=== PATIENT | male | born 2000 | race Caucasian/White ===

== ENCOUNTER 2018-09-22 21:46 | Emergency (ER) | payer OTHER ==
[2018-09-22 22:49] VITALS: BP 110/71
[2018-09-23] MEDS ORDERED: NORMAL SALINE 1000 ML 1,000 ML IV ONE (00:02)
--- NOTE | 2018-09-23 00:04 | ER Document Report ---
ED General - General Chief Complaint: Cough Stated Complaint: COUGH,DIFFICULTY BREATHING Time Seen by Provider: 09/22/18 23:57 Notes: Patient is a 18-year-old male that comes to the emergency department for chief complaint of cough. He states he has been sick for 2 weeks, he has been coughing the whole time, he has had some intermittent congestion, he has had some chills. He states prior to arrival he was coughing so hard he felt like he could not breathe. He has coughed up greenish sputum. 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 He has not been employed recently. He is vaccinated. He denies any diagnosed medical problems, smoking, asthma, or daily medications. TRAVEL OUTSIDE OF THE [place] IN LAST 30 DAYS: No - Related Data Allergies/Adverse Reactions: No Known Allergies Allergy (Unverified 09/22/18 23:45) Past Medical History - General Information source: Patient - Social History Smoking Status: Never Smoker Frequency of alcohol use: None Drug Abuse: None Lives with: Spouse/Significant other Family History: Reviewed & Not Pertinent Patient has suicidal ideation: No Patient has homicidal ideation: No - Medical History Medical History: Negative Renal/ Medical History: Denies: Hx Peritoneal Dialysis Surgical Hx: Negative - Immunizations Immunizations up to date: Yes Hx Diphtheria, Pertussis, Tetanus Vaccination: Yes Review of Systems - Review of Systems Constitutional: See HPI EENT: See HPI Cardiovascular: No symptoms reported Respiratory: See HPI Gastrointestinal: No symptoms reported Genitourinary: No symptoms reported Male Genitourinary: No symptoms reported Musculoskeletal: No symptoms reported Skin: No symptoms reported Hematologic/Lymphatic: No symptoms reported Neurological/Psychological: No symptoms reported Physical Exam - Vital signs Vitals: Temp Pulse Resp BP Pulse Ox 97.7 F 79 16 110/71 98 09/22/18 22:48 09/22/18 22:48 09/22/18 22:48 09/22/18 22:48 09/22/18 22:48 - Notes Notes: GENERAL: Patient appears mildly uncomfortable but is not toxic or distressed HEAD: Normocephalic, atraumatic. EYES: Pupils equal, round, and reactive to light. Extraocular movements intact. ENT: Oral mucosa moist, tongue midline. Oropharynx with minimal erythema. Airway patent. Minimal nasal congestion, no nasal septal hematoma, TM's intact. Nontender sinuses NECK: Full range of motion. Supple. Trachea midline. LUNGS: Clear to auscultation bilaterally, no wheezes, rales, or rhonchi. No respiratory distress. Very frequent congested coughing episodes. HEART: Regular rate and rhythm. No murmur ABDOMEN: Soft, non-tender. Non-distended. Bowel sounds present in all 4 quadrants. GENITOURINARY: Deferred EXTREMITIES: Moves all 4 extremities spontaneously. No edema, normal radial and dorsalis pedis pulses bilaterally. No cyanosis. BACK: no cervical, thoracic, lumbar midline tenderness. No saddle anesthesia, normal distal neurovascular exam. Moves all extremities in full range of motion. NEUROLOGICAL: Alert and oriented x3. Normal speech. Cranial nerves II through XII grossly intact. PSYCH: Normal affect, normal mood. SKIN: Warm, dry, normal turgor. No rashes or lesions noted. Course - Re-evaluation Re-evalutation: Patient given nebulized lidocaine and Tessalon for persistent cough. Chest x- ray unremarkable, CBC, chemistry unremarkable, vital signs unremarkable. Patient still has good clear lung sounds. Physical examination and history along with negative work-up are most consistent with bronchitis. Patient is not a smoker. Patient is improved on reevaluation. Discussed work-up, diagnosis, options, expectations, follow-up. Given dexamethasone after discussion, provided with symptomatic relief, discussed return precautions in detail. Patient states understanding and agreement. - Vital Signs Vital signs: Temp Pulse Resp BP Pulse Ox 97.7 F 79 16 110/71 98 09/22/18 22:48 09/22/18 22:48 09/22/18 22:48 09/22/18 22:48 09/22/18 22:48 - Laboratory Result Diagrams: 09/23/18 00:15 09/23/18 00:55 Discharge - Discharge Clinical Impression: Productive cough, Sinus congestion Condition: Stable Disposition: HOME, SELF-CARE Additional Instructions: Your chest x-ray and laboratory work-up do not show concerning abnormality's. You have bronchitis, you have been treated with Decadron, I recommend the Sudafed, Flonase, and Tessalon as prescribed. I also recommend Benadryl at night to help with sleep and to reduce postnasal drainage causing irritation. Symptoms should gradually resolve with time. Stay hydrated and rest. Follow-up with primary care. Return if you worsen including fever, difficulty breathing, vomiting, or any other concerning or worsening symptoms. Prescriptions: Benzonatate [Tessalon [place] 100 mg Capsule] 100 mg PO Q8HP PRN #20 cap PRN Reason: Fluticasone Propionate [Flonase Nasal [place] 50 Mcg/[place] 16 gm] 2 sprays NASL Q12 #1 inhaler Pseudoephedrine HCl [Sudafed 12 Hour] 120 mg PO Q12 PRN #14 tablet.er PRN Reason: Forms: Return to Work
[2018-09-23] MEDS ORDERED: BENZONATATE 100 MG CAPSULE PO ONE (00:19)
[2018-09-23] MEDS ORDERED: LIDOCAINE 1% INJ-PF (10 MG/ML) 30 ML SDV NEB ONE (00:19)
[2018-09-23 00:37] LABS: ABSOLUTE EOSINOPHILS # (AUTO) 0.3 10^3/uL (0.0-0.6); ABSOLUTE LYMPHOCYTES (AUTO) 2.4 10^3/uL (0.5-4.7); ABSOLUTE MONOCYTES (AUTO) 0.7 10^3/uL (0.1-1.4); ABSOLUTE NEUT (AUTO) 3.6 10^3/uL (1.7-8.2); BASOPHILS % (AUTO) 0.5 % (0-2); EOSINOPHILS % (AUTO) 3.6 % (0-6); HEMATOCRIT 40.5 % (37.9-51.0); HEMOGLOBIN 13.8 g/dL (13.5-17.0); LYMPHOCYTES % (AUTO) 34.4 % (13-45); MEAN CORPUSCULAR HEMOGLOBIN 30.3 pg (27.0-33.4); MEAN CORPUSCULAR VOLUME 89 fl (80-97); MONOCYTES % (AUTO) 9.4 % (3-13); PLATELET COUNT 218 10^3/uL (150-450); RED BLOOD COUNT 4.54 10^6/uL (4.35-5.55); SEGMENTED NEUTROPHILS % (AUTO) 52.1 % (42-78); TOTAL CELLS COUNTED % (AUTO) 100 %
--- NOTE | 2018-09-23 01:15 | RADIOLOGY REPORT (SQ) ---
EXAM DESCRIPTION: XR CHEST 2 VIEWS COMPLETED DATE/TME: 09/23/2018 00:02 CLINICAL HISTORY: 18 years, Male, persistent productive cough Comparison: None FINDINGS: No focal lung consolidation. No pleural effusion. No pneumothorax. Cardiac and mediastinal silhouette is unremarkable. No acute osseous abnormality. Soft tissues are unremarkable. IMPRESSION: No acute findings. No focal lung consolidation.
[2018-09-23 01:29] LABS: ALBUMIN 4.6 g/dL (3.5-5.0); ALKALINE PHOSPHATASE 77 U/L (38-126); ANION GAP 10 (5-19); ASPARTATE AMINO TRANSFERASE 23 U/L (17-59); BILIRUBIN,DIRECT 0.3 mg/dL (0.0-0.4); BILIRUBIN,TOTAL 0.6 mg/dL (0.2-1.3); BLOOD UREA NITROGEN 13 mg/dL (7-20); CALCIUM 9.3 mg/dL (8.4-10.2); CARBON DIOXIDE 27 mmol/L (22-30); CHLORIDE 105 mmol/L (98-107); GLUCOSE 89 mg/dL (75-110); POTASSIUM 4.1 mmol/L (3.6-5.0); TOTAL PROTEIN 7.2 g/dL (6.3-8.2)
[2018-09-23] MEDS ORDERED: DEXAMETHASONE SOD PHOS INJ 10 MG/1 ML VIAL IV ONE (01:59)
== END 2018-09-23 02:31 | disposition home or self-care (01) ==
LOC: ER 21:46
DX: R05 Cough (principal); R09.81 Nasal congestion
CPT/HCPCS: 36415; 85025; 80053; 71046; J3490; J7030; J1100